=== PATIENT | male | born 1985 | race African-American/Black ===

== ENCOUNTER 2024-07-02 15:45 | Emergency (ER) | payer MEDICAID, SELFPAY ==
--- NOTE | ~2024-07-02 | US_ITS ---
EXAMINATION: US SCROTUM CLINICAL INFORMATION: Right testicular pain and swelling. COMPARISON: None available. TECHNIQUE: A sonogram of the scrotum was performed assessing leonardo-scale appearance and color Doppler flow. Spectral Doppler analysis of the arterial and venous flow were performed in the testes bilaterally. FINDINGS: RIGHT: Right testicle measures 5.2 x 2.6 x 3.1 cm, volume 21.7 mL. There is an echogenic calcification in the midpole. There is hypoechoic subcortical lesion in the midpole with shadowing artifact measuring 0.7 cm in the mid pole. Spectral Doppler analysis of the arterial and venous flow is normal in the right testis. Right epididymal head is normal in size. No right hydrocele or varicocele is seen. Right epididymal Doppler flow is normal. LEFT: Left testicle measures 5.0 x 2.2 x 2.4 cm, volume 19.2 mL. There is a small echogenic calcification. No focal testicular parenchymal lesions are visualized. Spectral Doppler analysis of the arterial and venous flow is normal in the left testis. Left epididymal head is normal in size. No left hydrocele or varicocele is seen. Left epididymal Doppler flow is normal. US/US scrotum IMPRESSION: 1. Bilateral microlithiasis. 2. Small hypoechoic lesion mid pole right testes with shadowing artifact. Suboptimally visualized question edema, underlying lesion. Recommend follow-up ultrasound in 4-6 weeks. If patient has significant pain an outpatient MRI can be performed 3. There is no hydrocele or varicocele. Electronically signed by: Alec Aragon MD 07/02/2024 07:10 PM EDT RP
--- NOTE | ~2024-07-02 | US_ITS ---
EXAMINATION: US SCROTUM CLINICAL INFORMATION: Right testicular pain and swelling. COMPARISON: None available. TECHNIQUE: A sonogram of the scrotum was performed assessing leonardo-scale appearance and color Doppler flow. Spectral Doppler analysis of the arterial and venous flow were performed in the testes bilaterally. FINDINGS: RIGHT: Right testicle measures 5.2 x 2.6 x 3.1 cm, volume 21.7 mL. There is an echogenic calcification in the midpole. There is hypoechoic subcortical lesion in the midpole with shadowing artifact measuring 0.7 cm in the mid pole. Spectral Doppler analysis of the arterial and venous flow is normal in the right testis. Right epididymal head is normal in size. No right hydrocele or varicocele is seen. Right epididymal Doppler flow is normal. LEFT: Left testicle measures 5.0 x 2.2 x 2.4 cm, volume 19.2 mL. There is a small echogenic calcification. No focal testicular parenchymal lesions are visualized. Spectral Doppler analysis of the arterial and venous flow is normal in the left testis. Left epididymal head is normal in size. No left hydrocele or varicocele is seen. Left epididymal Doppler flow is normal. US/US scrotum doppler IMPRESSION: 1. Bilateral microlithiasis. 2. Small hypoechoic lesion mid pole right testes with shadowing artifact. Suboptimally visualized question edema, underlying lesion. Recommend follow-up ultrasound in 4-6 weeks. If patient has significant pain an outpatient MRI can be performed 3. There is no hydrocele or varicocele. Electronically signed by: Alec Aragon MD 07/02/2024 07:10 PM EDT
[2024-07-02 16:16] VITALS: BP 121/79; PULSE 70; RESP 16; TEMP 37.2; O2SAT 98; BMI 25.8
--- NOTE | 2024-07-02 16:17 | ED.MALEGU ---
HPI - Male Genitourinary General Chief complaint: Urogenital-Male Stated complaint: right testicle pain,swelling Time Seen by Provider: 07/02/24 16:17 Source: patient Mode of arrival: ambulatory Limitations: no limitations History of Present Illness ED Provider: Jaxson JOLLEY HPI Narrative: 39-year-old male with history left testicular surgery he described as fluid being drained from the right testicle in 2007 presents to ED for right testicular pain off and on for the past 3 years but then restarted last night. Patient denies any recent trauma the genital area. Patient states no abdominal pain, nausea, vomiting, flank pain, fever, or chills. Patient denies any penile discharge or penile lesions. Patient denies any history of STI states he is and he & is faithful. Patient patient does not believe he has a STI. Related Data Previous Rx's ?Medication ?Instructions ?Recorded naproxen 500 mg tablet 500 mg PO BID PRN pain 7 days #14 07/02/24 tabs Allergies Allergy/AdvReac Type Severity Reaction Status Date / Time No Known Allergies Allergy Verified 07/02/24 16:21 Review of Systems Review of Systems: Right testicular pain. Yes all other systems are reviewed and are negative PMFSH Social History Social History Smoked in Last 30 Days: No Use of substances other than those prescribed or required for medical reasons: No Advance Directives: No Advance Directives Information Provided: No Do you have a plan to hurt others: No Plan Physical Exam Vital Signs: Vital Signs: Last Vital Signs Temp 98.2 F 07/03/24 00:13 Pulse 58 07/03/24 00:13 Resp 18 07/03/24 00:13 BP 126/82 07/03/24 00:13 Pulse Ox 96 07/03/24 00:13 O2 Del Method Room Air 07/03/24 00:13 BMI result Body Mass Index 25.8 Const: General: cooperative, healthy appearing, comfortable, no acute distress, well developed, alert, awake and Physically active Orientation/consciousness: patient oriented x3 HEENT: Head: Yes normal to inspection, Yes No palpable skull fracture present, Yes normocephalic and Yes atraumatic Eyes: General: appearance normal, both eyes and all related structures Neck: Neck: Yes normal visual inspection, Yes full ROM, Yes no lymphadenopathy, Yes no meningeal signs, Yes trachea midline, Yes supple, No anterior neck swelling and No tender Chest: Chest palpation & inspection: normal inspection of the chest and normal palpation of entire chest wall Resp: Effort & Inspection: normal respiratory effort and able to speak in complete sentences Auscultation: clear to auscultation bilaterally Cardio: Jugular venous distension: no JVD Heart sounds: S1 normal heart sound present and S2 normal heart sound present GI: Inspection: Yes normal to inspection Palpation (GI): Soft to palpation, not firm, nontender, no guarding and not rigid : General: No CVA tenderness and Yes no CVA tenderness Male General Exam: Yes normal external exam Penis: normal penis and circumcised Meatus: meatus normal Scrotum: scrotum normal Testes: Testes normal and testicular tenderness on the right Back/Spine/Pelvis: Back: no CVA tenderness, No CVA tenderness and No back tenderness Skin: General skin exam: no rashes or lesions noted, elasticity normal and turgor normal Neuro: General: patient oriented x3, gait normal, tone normal, moves all extremities, Normal light touch and pain sensation, no meningeal signs, no focal motor deficits, CN's II-XI intact bilaterally and normal sensation to monofilament Extrem: General: Yes normal to inspection, Yes full ROM and Yes capillary refill normal Psych: Appearance: grossly normal, well kempt and not disheveled Course Course Course Narrative: This is a Rapid Medical Examination (RME) performed by Charanjit Leach PA-C in triage. Full HPI, ROS, assessment and treatment plan per primary provider in the Main ED. 39 yo [place] Creole speaking male presents to the ER for evaluation of acute on chronic right testicular pain and swelling that started a few days ago and got worse yesterday. hx left sided testicular surgery in 2007 where he had fluid drained and something else done that he cannot recall while living in [facility]. reports lower abdominal fullness and difficulty urinating. no vomiting, no hematuria. 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 Plan: US scrotum and doppler, UA, CT/NG Medical Decision Making Medical Decision Making MDM Narrative: 39 yold male with pmh left testicular surgery which seems to be for severe left hyrdrocele presents to the ED for right testicular pain since yesterday. patient states states no recent trauma, penile lesion, abdominal pain, nuasea, vomitting, flank pain, fever, chills, or penile lesions. UA normal. Patient does not want any empiric treatment for STI. Patient states favor with his . Ultrasound shows right testicular lesion. Patient informed to follow-up with urologist for re-evaluation as recommended by ultrasound report. Explained worrisome signs of informed to return to the ED immediately Differential Diagnosis Differential Diagnoses: The differential diagnosis associated with the presentation includes (Epididymitis, torsion) Admission/Observation Consideration of admission/observation: Escalation of care including admission/observation considered Lab Data MDM Lab Attestation statement: I reviewed the patient's lab results. Labs: Lab Results 07/02/24 Range/Units 16:43 Urine Color Yellow Urine Appearance Clear Urine pH 6.5 (5.0-9.0) Ur Specific [place] 1.015 (1.005-1.025) Urine Protein Negative (Neg-Trace) mg/dL Urine Glucose (UA) Negative (Negative) mg/dL Urine Ketones Negative (Negative) mg/dL Urine Blood Negative (Negative) Urine Nitrite Negative (Negative) Ur Leukocyte Esterase Negative (Negative) Chlam trachomat DNA PCR NOT DETECTED (Not Detect.) N.gonorrhoeae DNA (PCR) NOT DETECTED (Not Detect.) Independent Interpretation I performed an independent interpretation of an: Ultrasound Radiology Impression Discussion of test interpretation with radiology: I have reviewed the radiologist's reading. Independent Historian Clinical information obtained from an independent historian. History obtained from or confirmed by: Other (patient) External Record Review External record reviewed: Other (Prior visits) Prescription Management I considered prescription management with: Pain Medication Discharge Plan Discharge Clinical Impression: Pain in testicle Patient Disposition: Home, Self-Care Instructions: Testicle Pain (ED) Additional Instructions: You will need to follow-up with urology for your testicular pain. Your urine test came back negative for infection. Return to the ED immediately for any abdominal pain, nausea, vomiting, flank pain, fever, chills, worsening testicular pain, swelling, penile discharge, penile lesions, blood in urine, back pain, or any other concerning symptoms. US/US scrotum doppler IMPRESSION: 1. Bilateral microlithiasis. 2. Small hypoechoic lesion mid pole right testes with shadowing artifact. Suboptimally visualized question edema, underlying lesion. Recommend follow-up ultrasound in 4-6 weeks. If patient has significant pain an outpatient MRI can be performed 3. There is no hydrocele or varicocele. Electronically signed by: Alec Aragon MD 07/02/2024 07:10 PM EDT Prescriptions: New naproxen 500 mg tablet 500 mg PO BID PRN (Reason: pain) 7 Days Qty: 14 0RF Referrals: [facility] [place] [facility] [Provider Group] (Right testicular pain. Right testicular lesion) Stand Alone Forms: Work/School Release Interventions: ED Discharge Assessment Last Done: 07/03/24 00:13 Discharge Date/Time: 07/03/24 00:13 Print Language: Sharmin Escudero
[2024-07-02 16:52] LABS: Appearance Urine Clear; Color Urine Yellow; Glucose Urine UA Negative (Negative); Leukocyte Esterase Urine Negative (Negative); Nitrite Urine Negative (Negative); PH 6.5 (5.0-9.0); Specific Gravity - Urine 1.015 (1.005-1.025); Urine Blood Negative (Negative); Urine Ketones Negative (Negative); Urine Protein Negative (Neg-Trace)
[2024-07-02 19:59] VITALS: BP 126/80; PULSE 60; RESP 14; TEMP 36.2; O2SAT 98
[2024-07-02 21:47] VITALS: BP 126/82; PULSE 58; RESP 18; TEMP 36.8; O2SAT 96
[2024-07-03 00:13] VITALS: BP 126/82; PULSE 58; RESP 18; TEMP 36.8; O2SAT 96
[2024-07-03 05:39] LABS: CT PCR NOT DETECTED (Not Detect.); NG PCR NOT DETECTED (Not Detect.)
== END 2024-07-03 00:13 | disposition home or self-care (01) ==
PROVIDERS: Physician Assistant; Emergency Provider Emergency Medicine
DX: N50.812 Left testicular pain (principal); N50.89 Other specified disorders of the male genital organs; R10.31 Right lower quadrant pain; Z79.899 Other long term (current) drug therapy
CPT/HCPCS: 76870; 81003; 87491; 87591; 93975; 99284

== ENCOUNTER 2024-09-07 10:09 | Outpatient (AMB) | payer OTHER, SELFPAY ==
--- NOTE | 2024-09-06 20:34 | A.OFFVIS_ITS ---
Intake Visit Reasons: testicular pain Intake Note: New patient is present to establish care for testicular pain Any Urology Medications: none Antibiotic Allergy: none Blood Thinner: none History of Testicular Surgery- Drain fluid in 2007 in [facility] PVR: 18ml's Family History: Bladder Cancer? Prostate Cancer? 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 We will repeat ultrasound and naproxen 500 mg b.i.d. Exam-no discrete mass felt in the testicle there was fullness which could represent a cyst within the testicle or epididymis. 07/02/24- scrotal US--Bilateral microlithiasis. Small hypoechoic lesion mid pole right testes with shadowing artifact. Suboptimally visualized question edema, underlying lesion. no hydrocele or rosina icocele. [facility] Medical History Difficulty in urination Pain in testicle Surgical History History of testicular surgery Review of Systems Const All systems reviewed & are unremarkable except as noted in HPI and below Reports no additional complaints Eyes Reports no additional complaints ENT Reports no additional complaints Card Reports no additional complaints Resp Reports no additional complaints GI Reports no additional complaints Reports as per HPI Musc Reports no additional complaints Skin/Breast Reports system reviewed and no additional complaints, except as documented Neuro Reports no additional complaints Psych Reports no additional complaints Endo Reports no additional complaints Tigre/Lymph Reports no additional complaints Aller/Immun Reports no additional complaints Physical Exam Const General: healthy appearing, no acute distress and well developed Orientation/consciousness: patient oriented x3 HEENT Head: Yes normocephalic and Yes atraumatic Eyes Conjunctivae: conjunctivae normal Neck Neck: Yes normal visual inspection Chest Chest palpation & inspection: normal inspection of the chest Resp Effort & Inspection: normal respiratory effort Cardio Rate: regular rate GI Inspection: Yes normal to inspection Other: no discrete mass felt in the testicle there was fullness which could represent a cyst within the testicle or epididymis. Penis: normal penis Skin General skin exam: no rashes or lesions noted Neuro General: patient oriented x3 Extrem General: No pedal edema Psych Appearance: grossly normal Affect: normal affect Office Procedures Post Void Residual Post Residual Void Post Void Residual (PVR): 18 [id number] Void Residual by ultrasound Results Reviewed Results Reviewed: Date of Service: 07/02/24 EXAMINATION: US SCROTUM CLINICAL INFORMATION: Right testicular pain and swelling. COMPARISON: None available. TECHNIQUE: A sonogram of the scrotum was performed assessing leonardo-scale appearance and color Doppler flow. Spectral Doppler analysis of the arterial and venous flow were performed in the testes bilaterally. FINDINGS: RIGHT: Right testicle measures 5.2 x 2.6 x 3.1 cm, volume 21.7 mL. There is an echogenic calcification in the midpole. There is hypoechoic subcortical lesion in the midpole with shadowing artifact measuring 0.7 cm in the mid pole. Spectral Doppler analysis of the arterial and venous flow is normal in the right testis. Right epididymal head is normal in size. No right hydrocele or varicocele is seen. Right epididymal Doppler flow is normal. LEFT: Left testicle measures 5.0 x 2.2 x 2.4 cm, volume 19.2 mL. There is a small echogenic calcification. No focal testicular parenchymal lesions are visualized. Spectral Doppler analysis of the arterial and venous flow is normal in the left testis. Left epididymal head is normal in size. No left hydrocele or varicocele is seen. Left epididymal Doppler flow is normal. IMPRESSION: 1. Bilateral microlithiasis. 2. Small hypoechoic lesion mid pole right testes with shadowing artifact. Suboptimally visualized question edema, underlying lesion. Recommend follow-up ultrasound in 4-6 weeks. If patient has significant pain an outpatient MRI can be performed 3. There is no hydrocele or varicocele. Assessment & Plan Assessment & Plan (1) Testicular pain, right: Code(s): N50.811 - Right testicular pain Category: Medical (2) Abnormal finding on imaging: Code(s): R93.89 - Abnormal findings on diagnostic imaging of other specified body structures Category: Medical Plan Naproxen prn, Repeat US Scrotum Orders: Orders AMB Urinalysis Automated 09/07/24 Z13.9 - Encounter for screening, unspecified AMB Post Void Residual by ultrasound 09/07/24 R39.198 - Other difficulties with micturition US scrotum 09/07/24 N50.811 - Right testicular pain Medications: Refilled naproxen 500 mg PO BID PRN 14 tabs 0RF pain 7 days Patient Instructions: The patient had an opportunity to ask questions regarding treatment plan. The patient expressed understanding and agreement with the above treatment plan. The patient is aware they should contact our office by phone for worsening of their current condition or the appearance of new symptoms. Compliance is encouraged with any medications and followup testing that is ordered. It is a privilege to be allowed the opportunity to participate in the urologic care of your patient. If you have any questions or concerns regarding treatment for the above conditions please do not hesitate to contact me. The office telephone contact is [phone]. This note is constructed in part using voice recognition software. While every effort has been made to ensure accuracy feed house supervisor errors may have been included. Yours sincerely, Radha Zaidi MD Coding Level of Care Code New Pt Level 4 (88123) Diagnoses Testicular pain, right N50.811 Abnormal finding on imaging R93.89 CPT Codes Post Residual Void - PVR CPT Code: 17047-Ppfm Void Residual by ultrasound ([id number])
== END 2024-09-07 12:16 | disposition home or self-care (01) ==
PROVIDERS: Visit Provider Urology
DX: N50.811 Right testicular pain (principal); R93.89 Abnormal findings on diagnostic imaging of other specified body structures
CPT/HCPCS: 99204

== ENCOUNTER → 2024-09-07 10:09 | Outpatient (BNVA) | payer MEDICAID, SELFPAY | PROVIDERS: Visit Provider Urology | DX: N50.811 Right testicular pain (principal); R93.89 Abnormal findings on diagnostic imaging of other specified body structures | CPT/HCPCS: 51798; 99202 ==

== ENCOUNTER 2024-10-05 09:58 | Outpatient (REF) | payer OTHER, SELFPAY ==
--- NOTE | ~2024-10-05 | US_ITS ---
EXAMINATION: US SCROTUM HISTORY: N50.811 - Right testicular pain. COMPARISONS: Comparison is made with the prior examination dated 07/02/2024. FINDINGS: Real-time grayscale ultrasound imaging of the scrotum was performed. RIGHT TESTICLE: The right testis measures 5.2 x 2.9 x 3.7 cm and demonstrates normal homogeneous echotexture. Again seen is apparent lobulation associated with an approximately 7 mm vascular hypoechoic area demonstrating diffuse shadowing in the midportion of the testis. The appearance is similar to the prior study. There is apparent thickening of the capsule. The right testis demonstrates normal color Doppler flow. RIGHT EPIDIDYMIS: Normal in size, shape, and vascularity. LEFT TESTICLE: The left testis measures 4.9 x 2.4 x 3.7 cm and demonstrates normal homogeneous echotexture. No masses are seen. The left testis demonstrates normal color Doppler flow. LEFT EPIDIDYMIS: Normal in size, shape, and vascularity. VARICOCELE: None. HYDROCELE: No significant hydrocele is seen. OTHER COMMENTS: None. US/US scrotum IMPRESSION: Lobulation of the right testis with an approximately 7 mm vascular hypoechoic shadowing area in the midportion without significant change from the prior study. Continued follow-up is recommended. Electronically signed by: Arnoldo Miles MD 10/05/2024 02:27 PM [facility]
== END 2024-10-05 09:59 | disposition home or self-care (01) ==
LOC: HO.HMGCX 09:58
PROVIDERS: Visit Provider Urology
DX: N50.811 Right testicular pain (principal)
CPT/HCPCS: 76870

== ENCOUNTER → 2024-10-05 10:04 | Outpatient (BNV) | payer OTHER, SELFPAY | PROVIDERS: Visit Provider Radiology Diagnostic Radiology | DX: N50.811 Right testicular pain (principal) | CPT/HCPCS: 76870 ==

== ENCOUNTER 2025-02-08 10:11 | Outpatient (AMB) | payer OTHER, SELFPAY ==
--- NOTE | 2025-02-08 10:20 | MHC.OFFVIS ---
Intake Visit Reasons: 6m/US Intake Note: Patient is present for 6 month follow up/US Imagin10/05 Urology Medications: none Antibiotic Allergy: none Blood Thinner: none Principal System Software Engineer Required: Yes Principal System Software Engineer Language: Sharmin Escudero Principal System Software Engineer Name: [id number] Information Interpreted: non-clinical & clinical Allergies No Known Allergies Allergy (Verified 02/08/25 10:30) Medication List - Last Reconciled 02/08/25 by Radha Zaidi MD naproxen 500 mg PO BID PRN 10 days HPI Comments Details: 02/08/25-- 39-year-old male presenting with right testicular pain. Earlier evaluations revealed bilateral testicular microlithiasis and a right-sided 7 mm vascular hypoechoic area. Pt reports history of fluid presence on the left previously treated surgically. The current right testicular pain exacerbates on exertion, particularly during heavy lifting, and it possibly relates to a groin strain, with inflammation in the area. On further examination, the patient reports the absence of any left testicular pain and a repeat ultrasound shows no fluid accumulation in the testicles. He has been prescribed naproxen for managing symptoms and was advised to continue prn. We reviewed the potential for a right inguinal hernia, however, I am not able to detect a hernia on today's exam, but a referral to general surgery to rule out an inguinal hernia is recommended. I have discussed that the 7 mm vascular hypoechoic finding on the ultrasound is likely unrelated to the testicular pain. This finding is stable, we will repeat ultrasound in 1 year as recommended by Radiology. Urinary Symptoms Review - No urinary symptoms. Results - Ultrasound on 07/02/24: Bilateral testicular microlithiasis, small hypoechoic lesion with shadowing artifact, no hydrocele or varicocele - Ultrasound on 10/05/24:7 mm vascular hypoechoic area in the right testicle, stable no fluid accumulation 09/07/24-- [employer]- right testicular pain went to the emergency room received medication which helped currently pain is intermittent but when he has it is it is a 6 from a scale of 1-10 10 being the most severe. We will repeat ultrasound and naproxen 500 mg b.i.d. Exam-no discrete mass felt in the testicle there was fullness which could represent a cyst within the testicle or epididymis. 07/02/24- scrotal US--Bilateral microlithiasis. Small hypoechoic lesion mid pole right testes with shadowing artifact. Suboptimally visualized question edema, underlying lesion. no hydrocele or varicocele. [facility] Medical History Difficulty in urination Pain in testicle Surgical History History of testicular surgery Review of Systems Const All systems reviewed & are unremarkable except as noted in HPI and below Reports no additional complaints Eyes Reports no additional complaints ENT Reports no additional complaints Card Reports no additional complaints Resp Reports no additional complaints GI Reports no additional complaints Reports as per HPI Musc Reports no additional complaints Skin/Breast Reports system reviewed and no additional complaints, except as documented Neuro Reports no additional complaints Psych Reports no additional complaints Endo Reports no additional complaints Tigre/Lymph Reports no additional complaints Aller/Immun Reports no additional complaints Results Reviewed Results Reviewed: Date of Service: 10/05/24 EXAMINATION: US SCROTUM HISTORY: N50.811 - Right testicular pain. COMPARISONS: Comparison is made with the prior examination dated 07/02/2024. FINDINGS: Real-time grayscale ultrasound imaging of the scrotum was performed. RIGHT TESTICLE: The right testis measures 5.2 x 2.9 x 3.7 cm and demonstrates normal homogeneous echotexture. Again seen is apparent lobulation associated with an approximately 7 mm vascular hypoechoic area demonstrating diffuse shadowing in the midportion of the testis. The appearance is similar to the prior study. There is apparent thickening of the capsule. The right testis demonstrates normal color Doppler flow. RIGHT EPIDIDYMIS: Normal in size, shape, and vascularity. LEFT TESTICLE: The left testis measures 4.9 x 2.4 x 3.7 cm and demonstrates normal homogeneous echotexture. No masses are seen. The left testis demonstrates normal color Doppler flow. LEFT EPIDIDYMIS: Normal in size, shape, and vascularity. VARICOCELE: None. HYDROCELE: No significant hydrocele is seen. OTHER COMMENTS: None. IMPRESSION: Lobulation of the right testis with an approximately 7 mm vascular hypoechoic shadowing area in the midportion without significant change from the prior study. Continued follow-up is recommended. Date of Service: 07/02/24 EXAMINATION: US SCROTUM CLINICAL INFORMATION: Right testicular pain and swelling. COMPARISON: None available. TECHNIQUE: A sonogram of the scrotum was performed assessing leonardo-scale appearance and color Doppler flow. Spectral Doppler analysis of the arterial and venous flow were performed in the testes bilaterally. FINDINGS: RIGHT: Right testicle measures 5.2 x 2.6 x 3.1 cm, volume 21.7 mL. There is an echogenic calcification in the midpole. There is hypoechoic subcortical lesion in the midpole with shadowing artifact measuring 0.7 cm in the mid pole. Spectral Doppler analysis of the arterial and venous flow is normal in the right testis. Right epididymal head is normal in size. No right hydrocele or varicocele is seen. Right epididymal Doppler flow is normal. LEFT: Left testicle measures 5.0 x 2.2 x 2.4 cm, volume 19.2 mL. There is a small echogenic calcification. No focal testicular parenchymal lesions are visualized. Spectral Doppler analysis of the arterial and venous flow is normal in the left testis. Left epididymal head is normal in size. No left hydrocele or varicocele is seen. Left epididymal Doppler flow is normal. IMPRESSION: 1. Bilateral microlithiasis. 2. Small hypoechoic lesion mid pole right testes with shadowing artifact. Suboptimally visualized question edema, underlying lesion. Recommend follow-up ultrasound in 4-6 weeks. If patient has significant pain an outpatient MRI can be performed 3. There is no hydrocele or varicocele. Assessment & Plan Assessment & Plan (1) Testicular pain, right: Code(s): N50.811 - Right testicular pain Category: Medical (2) Abnormal finding on imaging: Code(s): R93.89 - Abnormal findings on diagnostic imaging of other specified body structures Category: Medical (3) Strain of right groin: Code(s): S76.211A - Strain of adductor muscle, fascia and tendon of right thigh, initial encounter Category: Medical Plan Referral to gen surgery, Naproxen prn, Repeat US Scrotum in one year Orders: Referrals General Surgery Referral S76.211A - Strain of adductor muscle, fascia and tendon of right thigh, initial encounter Medications: Changed From naproxen must be administered with a meal 500 mg PO BID 7 days PRN 14 tabs 2RF pain To naproxen must be administered with a meal 500 mg PO BID 10 days PRN 20 tabs 2RF pain From naproxen 500 mg PO BID 7 days PRN 14 tabs 0RF pain To naproxen must be administered with a meal 500 mg PO BID 7 days PRN 14 tabs 2RF pain Patient Instructions: The patient had an opportunity to ask questions regarding treatment plan. The patient expressed understanding and agreement with the above treatment plan. The patient is aware they should contact our office by phone for worsening of their current condition or the appearance of new symptoms. Compliance is encouraged with any medications and followup testing that is ordered. It is a privilege to be allowed the opportunity to participate in the urologic care of your patient. If you have any questions or concerns regarding treatment for the above conditions please do not hesitate to contact me. The office telephone contact is [phone]. This note is constructed in part using voice recognition software. While every effort has been made to ensure accuracy die presser errors may have been included. Yours sincerely, Radha Zaidi MD Scribe Plan - Not visible on output: Patient was informed and verbally consented to the use of an ambient scribe for clinic note documentation during this visit. Coding Level of Care Code Est Pt Level 4 (82589) Diagnoses Testicular pain, right N50.811 Abnormal finding on imaging R93.89 Strain of right groin S76.211A
== END 2025-02-08 11:02 | disposition home or self-care (01) ==
LOC: HO.HUSH 10:11
PROVIDERS: Visit Provider Urology
DX: N50.811 Right testicular pain (principal); R93.89 Abnormal findings on diagnostic imaging of other specified body structures; S76.211A Strain of adductor muscle, fascia and tendon of right thigh, initial encounter
CPT/HCPCS: 99214

== ENCOUNTER → 2025-02-08 10:11 | Outpatient (BNVA) | payer OTHER, SELFPAY | PROVIDERS: Visit Provider Urology | DX: N50.811 Right testicular pain (principal); S76.211A Strain of adductor muscle, fascia and tendon of right thigh, initial encounter; R93.89 Abnormal findings on diagnostic imaging of other specified body structures | CPT/HCPCS: 99212 ==